=== PATIENT | male | born 2005 | race Caucasian/White ===

== ENCOUNTER 2024-03-23 09:05 | Emergency (ER) | payer BC ==
[~2024-03-23] VITALS: Ht 170.2 cm; Wt 74.8 kg
[2024-03-23 09:13] VITALS: BP_SYST 117; PULSE 67; RESP 19; TEMP 99; O2SAT 99
[2024-03-23] MEDS ORDERED: NAPR-688 PO (10:19)
[2024-03-23 10:26] VITALS: BP_SYST 117; PULSE 67; RESP 19; TEMP 99; O2SAT 99
== END 2024-03-23 10:25 | disposition home or self-care (01) ==
LOC: SED 09:05
DX: S93.601A Unspecified sprain of right foot, initial encounter (principal); Z91.010 Allergy to peanuts; Z79.899 Other long term (current) drug therapy; X50.0XXA Overexertion from strenuous movement or load, initial encounter; Y93.89 Activity, other specified; Y92.89 Other specified places as the place of occurrence of the external cause; Y99.8 Other external cause status
CPT/HCPCS: 99283